=== PATIENT | male | born 1935 | race Caucasian/White ===

== ENCOUNTER → 2018-04-03 | Outpatient (CLI) | payer OTHER, BC | END | disposition home or self-care (01) | LOC: LAB 10:40 | DX: N40.1 Benign prostatic hyperplasia with lower urinary tract symptoms (principal) ==

== ENCOUNTER 2020-07-14 08:22 | Outpatient (CLI) | payer OTHER | END 2020-07-14 08:33 | disposition home or self-care (01) | LOC: NUCLEAR 08:22 | PROVIDERS: ATTEND Internal Medicine Cardiovascular Disease | DX: I25.10 Atherosclerotic heart disease of native coronary artery without angina pectoris (principal); R07.89 Other chest pain; I10 Essential (primary) hypertension; E78.00 Pure hypercholesterolemia, unspecified | CPT/HCPCS: 78452; 93017; A9500; J0153 ==

== ENCOUNTER 2020-12-07 09:22 | Outpatient (CLI) | payer OTHER | END 2020-12-07 18:50 | disposition home or self-care (01) | LOC: LAB 09:22 | PROVIDERS: ATTEND Internal Medicine Cardiovascular Disease | DX: I10 Essential (primary) hypertension (principal); E78.5 Hyperlipidemia, unspecified; E03.8 Other specified hypothyroidism; D64.89 Other specified anemias ==

== ENCOUNTER → 2021-01-05 09:41 | Outpatient (CLI) | payer OTHER | END | disposition home or self-care (01) | LOC: LAB 09:41 | PROVIDERS: ATTEND Internal Medicine Geriatric Medicine | DX: E11.9 Type 2 diabetes mellitus without complications (principal); I10 Essential (primary) hypertension; D64.9 Anemia, unspecified; D50.0 Iron deficiency anemia secondary to blood loss (chronic); D51.9 Vitamin B12 deficiency anemia, unspecified; E78.5 Hyperlipidemia, unspecified; E55.9 Vitamin D deficiency, unspecified ==

== ENCOUNTER 2021-04-11 10:45 | Outpatient (CLI) | payer OTHER | END 2021-04-11 10:48 | disposition home or self-care (01) | LOC: LAB 10:45 | PROVIDERS: ATTEND Internal Medicine Geriatric Medicine | DX: N39.0 Urinary tract infection, site not specified (principal); B96.1 Klebsiella pneumoniae [K. pneumoniae] as the cause of diseases classified elsewhere; E78.49 Other hyperlipidemia; E55.9 Vitamin D deficiency, unspecified; D51.8 Other vitamin B12 deficiency anemias ==

== ENCOUNTER 2021-07-06 10:50 | Outpatient (CLI) | payer OTHER | END 2021-07-06 11:00 | disposition home or self-care (01) | LOC: PPH VACUNA 10:50 | PROVIDERS: ATTEND Emergency Medicine Pediatric Emergency Medicine | DX: Z23 Encounter for immunization (principal) ==

== ENCOUNTER → 2021-07-28 09:59 | Outpatient (CLI) | payer OTHER | END | disposition home or self-care (01) | LOC: EDSEX 09:59 → LAB 09:59 | PROVIDERS: ATTEND Ophthalmology | DX: I10 Essential (primary) hypertension (principal); E78.49 Other hyperlipidemia; H53.8 Other visual disturbances; D68.8 Other specified coagulation defects; R39.198 Other difficulties with micturition; Z01.811 Encounter for preprocedural respiratory examination; H25.11 Age-related nuclear cataract, right eye ==

== ENCOUNTER 2025-04-12 09:42 | Outpatient (CLI) | payer OTHER ==
[2025-04-12 10:25] LABS: URINE APPEARANCE Clear; URINE BILIRRUBIN Negative (NEGATIVE); URINE BLOOD Negative; URINE COLOR Yellow; URINE GLUCOSE Negative (NEGATIVE); URINE KETONE Negative (NEGATIVE); URINE LEUKOCYTE Trace; URINE NITRATE Negative; URINE PROTEIN Trace (NEGATIVE); URINE UROBILINOGEN 0.2 E.U./dl
[2025-04-12 10:26] LABS: URINE BACTERIA 23.9 uL (0.0-1933); URINE EPITHELIAL CELLS 4.1 uL (0.0-38.8); URINE RBC 15.1 uL (0.0-20.8); URINE WBC 17.9 uL (0.0-23.2)
[2025-04-12 10:30] LABS: URINE CAST 0.00 uL (0.0-1.40)
== END 2025-04-12 09:45 | disposition home or self-care (01) ==
LOC: LAB 09:42
PROVIDERS: ATTEND Urology
DX: R97.20 Elevated prostate specific antigen [PSA] (principal); R31.1 Benign essential microscopic hematuria

== ENCOUNTER 2025-09-05 10:01 | Outpatient (CLI) | payer OTHER ==
[2025-09-05 10:45] LABS: URINE APPEARANCE Clear; URINE BILIRRUBIN Negative (NEGATIVE); URINE BLOOD Negative; URINE COLOR Yellow; URINE GLUCOSE Negative (NEGATIVE); URINE KETONE Negative (NEGATIVE); URINE LEUKOCYTE Moderate; URINE NITRATE Negative; URINE PROTEIN 30 (NEGATIVE); URINE UROBILINOGEN 0.2 E.U./dl
[2025-09-05 10:46] LABS: URINE BACTERIA 56.0 uL (0.0-1933); URINE EPITHELIAL CELLS 4.1 uL (0.0-38.8); URINE RBC 22.8 uL (0.0-20.8); URINE WBC 112.6 uL (0.0-23.2)
[2025-09-05 10:59] LABS: URINE CAST 0.00 uL (0.0-1.40)
[2025-09-05 11:08] LABS: BASO % 0.7 % (0.1-1.2); EOS # 0.06 (0.04-0.54); EOS % 1.0 % (0.7-7.0); LYMPH # 1.09 (1.18-3.74); LYMPH % 18.4 % (19.3-53.1); MEAN PLATELET VOLUME 9.40 fl (9.4-12.4); MONO # 0.49 (0.24-0.82); MONO % 8.2 % (4.7-12.5); NEUT # 4.25 (1.56-6.13); NEUT % 71.5 % (34.0-71.1); RED CELL DISTRIBUTION WIDTH 14.8 % (11.6-14.4)
[2025-09-05 11:38] LABS: ALT/SGPT 37.0 U/L (12-78); AST/SGOT 38.0 U/L (15-37); BILIRUBIN TOTAL 0.95 mg/dL (0.3-1.2); BUN CREA RATIO 9.0 (7.0-25.0); CHOL HDL RATIO 1.5 (0-5.0); CREATININE SERUM 1.04 mg/dL (0.70-1.30); GFR 67.24; GLOBULINA 3.1 G/DL (2.4-3.5); GLUCOSE FASTING 123.0 mg/dL (65-100); HDL 95.0 mg/dl (40-60); LDL 39.0 mg/dl (0-130); OSMOLALITY SERUM 279.0 MOSM/KG (275-295); TSH 3.16 uIU/mL (0.358-3.74); VLDL 9.0 (0-39)
[2025-09-05 12:59] LABS: FOLIC ACID > 20.00 ng/ml (4.78-20); VITAMIN D3 25 HYDROXY 54.46 ng/ml (30-120)
[2025-09-05 16:06] LABS: ob NEGATIVE (NEGATIVE)
== END 2025-09-05 10:27 | disposition home or self-care (01) ==
LOC: LAB 10:01
DX: I10 Essential (primary) hypertension (principal); D51.9 Vitamin B12 deficiency anemia, unspecified; N39.0 Urinary tract infection, site not specified; E55.9 Vitamin D deficiency, unspecified; K62.5 Hemorrhage of anus and rectum; E03.9 Hypothyroidism, unspecified; E78.5 Hyperlipidemia, unspecified; R78.89 Finding of other specified substances, not normally found in blood; R73.09 Other abnormal glucose